=== PATIENT | male | born 1995 | race Caucasian/White ===

== ENCOUNTER 2017-11-28 08:16 | Emergency (ER) | payer OTHER ==
[~2017-11-28] VITALS: Ht 182.9 cm; Wt 79.4 kg
--- NOTE | 2017-11-28 09:00 | ED ANKLE/FOOT INJURY COMPLAINT ---
History of Present Illness General Chief Complaint: General Adult Stated Complaint: STEPPED ON A NAIL LAST PM, HERE FOR TETANUS SHOT Source: patient Exam Limitations: no limitations Vital Signs & Intake/Output Vital Signs & Intake/Output Vital Signs Date Time Temp Pulse Resp B/P B/P Pulse O2 O2 Flow FiO2 Mean Ox Delivery Rate 11/28 1016 98.0 90 20 120/80 98 Room Air 11/28 0829 97.8 92 15 118/78 99 Room Air Room Air Allergies Coded Allergies: No Known Allergies (11/28/17) Reconcile Medications Ciprofloxacin HCl (Cipro) 500 MG TABLET 1 TAB PO BID PUNCTURE WOUND TO FOOT Ibuprofen 800 MG TABLET 1 TAB PO TID PRN PAIN Triage Note: PT TO ED FOR C/C OF PAIN TO L HEEL AREA S/P STEPPING ON ZOILA NAIL LAST NIGHT. PT REMOVED NAIL AT HOME. NOT UP TO DATE ON TETANUS SHOT. Triage Nurses Notes Reviewed? yes Occurred: yesterday Duration: day(s): (1-2), constant, continues in ED Timing: single episode today Severity: mild, moderate Severity Numbers: 6 Pain/Injury Location: Right: Heel. Method of Injury: PUNCTURE No Modifying Factors: none HPI: 22-year-old male with no medical history presents for evaluation after stepping on a nail. Patient reports he was walking in flip-flops doing some work when he stepped on a nail. The nail went through the flip-flop into his heel. Patient reports he has a single puncture wound to the left heel. No other injuries. He is unsure of his last tetanus shot. He reports pain in this area is worse with movement. He is able to walk. There has been no drainage fever numbness tingling or any other injuries. Past History Travel History Traveled to [place] past 21 day No Medical History Any Pertinent Medical History? see below for history Neurological: NONE EENT: NONE Cardiovascular: NONE Respiratory: NONE Gastrointestinal: NONE Hepatic: NONE Renal: NONE Musculoskeletal: NONE Psychiatric: NONE Endocrine: NONE Blood Disorders: NONE Cancer(s): NONE COMBINATION PRESSER/Reproductive: NONE Surgical History Surgical History: none, non-contributory Psychosocial History What is your primary language Japanese Tobacco Use: Never used ETOH Use: occasional use Illicit Drug Use: denies illicit drug use Family History Hx Contributory? No Review of Systems Review of Systems Constitutional: Reports: no symptoms. EENTM: Reports: no symptoms. Respiratory: Reports: no symptoms. Cardiovascular: Reports: no symptoms. GI: Reports: no symptoms. Genitourinary: Reports: no symptoms. Musculoskeletal: Reports: no symptoms. Skin: Reports: see HPI (PUNCTURE WOUND). Neurological/Psychological: Reports: no symptoms. Hematologic/Endocrine: Reports: no symptoms. Immunologic/Allergic: Reports: no symptoms. All Other Systems: Reviewed and Negative Physical Exam Physical Exam General Appearance: well developed/nourished, no apparent distress, alert, awake Head: atraumatic, normal appearance Eyes: Bilateral: normal appearance, EOMI. Ears, Nose, Throat: hearing grossly normal Neck: normal inspection, supple, full range of motion Cardiovascular/Respiratory: no respiratory distress Leg/Knee/Thigh Left: normal range of motion, normal inspection Leg/Knee/Thigh Right: normal range of motion, normal inspection Ankle Left: normal inspection, normal range of motion Ankle Right: normal inspection, normal range of motion Foot Left: normal range of motion, THERE IS A SINGLE PUNCTURE WOUND TO THE LEFT HEEL. NO ERYTHEMA OR DISCHARGE. THERE IS TENDERNESS TO PALPATION. PT IS ABLE TO WALK AND BEAR WEIGHT, N/V SUPPLY INTACT Foot Right: normal inspection, normal range of motion Neuro/Vascular: normal motor function, normal sensation Tendon: normal tendon function Psychiatric: awake, alert, oriented x 3 Skin: intact, normal color, warm/dry Progress Differential Diagnosis: cellulitis, fracture, sprain, contusion, FB, PUNCTURE WOUND Plan of Care: Current Medications Sig/Jesse Start time Last Medication Dose Stop Time Status Admin Tetanus/Diphtheria 0.5 ML ONCE ONE 11/28 0900 AC Toxoids Adsorbed 11/28 0901 (Decavac) Patient is here for a puncture wound to the left heel. She stepped on a nail. This occurred yesterday. On exam he has a single puncture wound. Neurovascular supplies intact the currently has no signs of infection. An x-ray was obtained is negative for fracture or radiopaque foreign body. Tetanus was updated. Patient was given a prescription for Cipro for wound prophylaxis. Discussed wound care procedures in detail. A sterile dressing was placed over the puncture wound. Discussed return precautions patient agrees to plan Diagnostic Imaging: Viewed by Me: Radiology Read. Discussed w/RAD: Radiology Read. Radiology Impression: PATIENT: CHANI SHABAZZ PRESENT AGE: 22 PATIENT ACCOUNT NO: [id number] : 95 LOCATION: [facility] ORDERING PHYSICIAN: Satish FRANKLIN SERVICE DATE: 11/28/17 EXAM TYPE: RAD - XRY- FOOT COMPLETE, LEFT EXAMINATION: XR FOOT, LEFT CLINICAL INFORMATION: Stepped on a nail yesterday. Puncture wound. Evaluate for fracture or retained foreign body. COMPARISON: No relevant prior imaging. TECHNIQUE: 3 views of the left foot. FINDINGS: There is no evidence of a retained radiodense foreign body. No evidence of acute fracture and no dislocation. No substantial soft tissue swelling and no evidence of soft tissue gas. Joint spaces are maintained. No ankle joint effusion. IMPRESSION: Unremarkable examination. No evidence of acute fracture and no evidence of a retained radiodense foreign body. DICTATED BY: Jose Sosa MD DATE/TIME DICTATED:11/28/17956 TUBE BUFFER: NENA DATE/TIME TRANSCRIBED:11/28/17956 CONFIDENTIAL, DO NOT COPY WITHOUT APPROPRIATE AUTHORIZATION. <Electronically signed in Other Vendor System> SIGNED BY: Jose Sosa MD 11/28/17 1005 Departure Departure Disposition: HOME OR SELF CARE Condition: Stable Clinical Impression Primary Impression: Puncture wound of foot Qualifiers: Encounter type: initial encounter Laterality: left Qualified Code: S91.332A - Puncture wound without foreign body, left foot, initial encounter Referrals: Patient Has No Primary Care Dr (PCP/Family) Additional Instructions: Keep area clean and dry. Change dressing once daily. Take antibiotics as directed for the full course. Ibuprofen 800 mg every 8 hours with food as needed for pain. Monitor the area for signs of infection like redness swelling discharge or pain monitor your symptoms return with any concerns. Departure Forms: Customer Survey General Discharge Information Prescriptions: Current Visit Scripts Ciprofloxacin HCl (Cipro) 1 TAB PO BID #14 TAB Ibuprofen 1 TAB PO TID PRN PAIN #30 TAB
--- NOTE | 2017-11-28 10:05 | RADIOLOGY REPORT ---
EXAMINATION: XR FOOT, LEFT CLINICAL INFORMATION: Stepped on a nail yesterday. Puncture wound. Evaluate for fracture or retained foreign body. COMPARISON: No relevant prior imaging. TECHNIQUE: 3 views of the left foot. FINDINGS: There is no evidence of a retained radiodense foreign body. No evidence of acute fracture and no dislocation. No substantial soft tissue swelling and no evidence of soft tissue gas. Joint spaces are maintained. No ankle joint effusion. IMPRESSION: Unremarkable examination. No evidence of acute fracture and no evidence of a retained radiodense foreign body.
[2017-11-28] MEDS ORDERED: CIPRO500 M1 PO (10:12)
[2017-11-28] MEDS ORDERED: IBUPROFEN800 M1 PO (10:12)
[2017-11-28 10:16] VITALS: BP 120/80
== END 2017-11-28 10:16 ==
LOC: ERH 08:16
DX: S91.332A Puncture wound without foreign body, left foot, initial encounter (principal); W45.0XXA Nail entering through skin, initial encounter; Y93.01 Activity, walking, marching and hiking
CPT/HCPCS: 73630-LT; 90471; 90714